=== PATIENT | female | born 1950 | race Caucasian/White ===

== ENCOUNTER 2017-08-22 10:38 | Observation (INO) ==
[~2017-08-22 10:38] MED LIST: Clindamycin 900mg (Premix) 900 MG/50 ML BAG IV ONE; LIDOCAINE MPF 2% - 5 ML (20 MG/1 ML) ONE; LIDOCAINE W/ SODIUM BICARB 0.5 ML SYR ONE; LIDOCAINE W/ SODIUM BICARB 0.5 ML SYR SUBD ONE; Lactated Ringers 1,000 ML PRIMARY IV ONE; MIDAZOLAM 5 MG/1 ML ONE; PROPOFOL 10 MG/1 ML (200 MG/20 ML) VIAL IV ONE; fentaNYL Inj 250 MCG/5 ML VIAL ONE
[2017-08-22] MEDS: Lactated Ringers 1,000 ML PRIMARY IV SCH ×2 (10:56→20:16)
[2017-08-22] MEDS ORDERED: EPINEPHrine Inj (1:1,000) 30mg/30ml vial ONE (11:20)
[2017-08-22] MEDS ORDERED: Ropivacaine 0.2% VIAL 20 ML ONE (11:20)
[2017-08-22] MEDS ORDERED: LIDOCAINE 2%/ EPI 1:200,000 - 20 ML VIAL ONE (11:49)
[2017-08-22] MEDS ORDERED: BUPivacaine Inj 0.5% PF (5mg/ml) 30ml vial ONE (11:49)
[2017-08-22] MEDS ORDERED: HYDROmorphone 2 MG/1 ML ONE ×3 (12:13→19:03)
[2017-08-22 12:38] LABS: BLOOD UREA NITROGEN 16 mg/dL (7-22)
[2017-08-22] MEDS ORDERED: LIDOCAINE MPF 2% - 5 ML (20 MG/1 ML) ONE (12:57)
[2017-08-22] MEDS ORDERED: ALBUTEROL SULFATE 8.5 GM HFA INHALER INH ONE (12:59)
[2017-08-22] MEDS ORDERED: ROCURONIUM 10 MG/1 ML - 5 ML VIAL IVP ONE (13:03)
[2017-08-22] MEDS ORDERED: GLYCOPYRROLATE 0.2 MG/1 ML VIAL ONE (13:17)
[2017-08-22] MEDS ORDERED: ONDANSETRON 4 MG/2 ML VIAL IVP PRN (14:56)
--- NOTE | 2017-08-22 14:56 | ORTHO.OP ---
- - -: See Dictated Operative Report Procedure Codes - Shoulder Procedures [facility] Procedure Codes: Other CPT Code(s) (CPT code 10841, 32262, 00567. W Rubio PAC assisted)
[2017-08-22] MEDS ORDERED: HYDROmorphone 2 MG/1 ML IVP PRN ×2 (15:01→15:14)
[2017-08-22] MEDS ORDERED: KETOROLAC 15 MG/1 ML VIAL ONE (15:10)
[2017-08-22] MEDS ORDERED: MIDAZOLAM HCL 50 MG/10 ML VIAL IVP PRN (15:14)
[2017-08-22] MEDS ORDERED: LIDOCAINE W/ SODIUM BICARB 0.5 ML SYR SUBD PRN (15:14)
[2017-08-22] MEDS ORDERED: Lactated Ringers 1,000 ML PRIMARY IV SCH (15:15)
--- NOTE | 2017-08-22 15:17 | CRNA.PROGR ---
Anesthesia Recovery Phase I - Post Anesthesia Evaluation Patient's Condition on Arrival in Phase I: Stable Pain Level: 7
--- NOTE | 2017-08-22 15:19 | CRNA.PROCE ---
Nerve Block Documentation - - Safety Measures: Time Out Taken - - Type of Nerve Block Used: Right Interscalene Block Position for Nerve Block: Supine Moniters Used During Block: EKG, SPO2, NIBP Oxygen Supplemented: Yes Sedation Used - Enter Amount in Comment Field [ANES.SEDAT]: Midazolam (mg): Yes (5mg), Other Sedation: Yes (dilaudid 1mg) Skin Prep Used: ChloroPrep Draped: No Technique: Nerve Stimulator Nerve Block Needle Used: Intelligent Apps (mytaxi) 50 mm Stimulation Hz: 2 Stimulation Staring mA: 1.2 Stimulation Ending mA: 0.48 Local Anesthetic - Enter Amt in Comment Field [ANES.LOCNB]: 0.5 % Bupivacaine Plain (mL): Yes (20ml), 2 % Xylocaine with Epinephrine 1:200,000 (mL): Yes (20ml ) Additives to Nerve Blocks: Dexamethasone (mg): Yes (8mg(2ml)) - - PreOp Block : Time In: 12:05 PreOp Block : Time Out: 12:20 Anesthesia Time - Other Weight: 95.254 kg Height: 5 ft 6 in Body Mass Index (BMI): 33.9
[2017-08-22] MEDS ORDERED: MIDAZOLAM 5 MG/1 ML ONE (15:20)
--- NOTE | 2017-08-22 15:21 | CRNA.PROGR ---
Anesthesia Time - - Start date: 08/22/17 End date: 08/22/17 - Procedure/Recovery Time Anesthesia : Time In: 12:34 Anesthesia : Time Out: 15:13 Anesthesia : Total Time: 159 - Block Time PreOp Block : Time In: 12:05 PreOp Block : Time Out: 12:20 PreOp Block : Total Time: 15 - Total Anesthesia Time Total Anesthesia Time (minutes): 174 - Other Weight: 95.254 kg Height: 5 ft 6 in Body Mass Index (BMI): 33.9 Physical Status: P3 Anesthesia Type: Interscalene Block (for post op pain control), General Anesthesia : LMA
[2017-08-22] MEDS ORDERED: Lactated Ringers 1,000 ML PRIMARY IV ONE (15:22)
[2017-08-22] MEDS ORDERED: Sodium Chloride 0.9% vial 10 ML ONE (16:08)
[2017-08-22] MEDS ORDERED: KETAMINE 100 MG/1 ML - 5 ML ONE ×2 (16:08→17:44)
[2017-08-22] MEDS ORDERED: Acetaminophen 1000mg Inj 1,000 MG/100 ML VIAL IV PRN (18:29)
[2017-08-22] MEDS ORDERED: KETOROLAC 30 MG/1 ML VIAL IVP SCH (18:30)
[2017-08-22] MEDS: HYDROmorphone 2 MG/1 ML IVP PRN (19:00)
[2017-08-22] MEDS ORDERED: NORMAL SALINE 10 ML SYRINGE FLUSH IVP PRN (19:09)
--- NOTE | 2017-08-22 19:13 | ORTHO.PROG ---
Last Taken Vital Signs: Vital Signs - Last Taken Temperature 97.3 F 08/22/17 11:00 Pulse Rate 60 08/22/17 11:00 Respiratory Rate 16 08/22/17 11:00 Blood Pressure 131/85 08/22/17 11:00 Pulse Ox 95 08/22/17 11:00 Subjective: Patient generally feels her pain is reasonably well controlled on multiple different IV medications. Patient is sleepy initially but was able to wake up and asked appropriate questions, joking. Objective: Right arm brace in appropriate position she can wiggle the fingers well normal sensory exam by her history. Her dressing is clean and dry. No active bleeding or issues. She has brisk refill good pulses good motion of the wrist also Vital Signs (24 hrs) Temp Pulse Resp BP Pulse Ox 08/22/17 11:00 97.3 F 60 16 131/85 95 Assessment: Status post right arthroscopic rotator cuff repair and biceps tenotomy and subacromial decompression and glenohumeral debridement doing well. Plan: At the current time patient is stable she seems to be well-controlled on IV Tylenol Toradol and dilaudid. Patient will continue on his current medications and we'll try to wean her to oral medications and try to get her home tomorrow morning. She'll begin physical therapy on Monday she is to bring her [facility] physical therapy form with her to the appointment.
[2017-08-22] MEDS: KETOROLAC 30 MG/1 ML VIAL IVP PRN (21:57)
[2017-08-22] MEDS ORDERED: Acetaminophen 1000mg Inj 1,000 MG/100 ML VIAL IV ONE (22:14)
[2017-08-22] MEDS ORDERED: HYDROcodone-APAP 7.5 MG-325 MG TABLET PO ONE (23:22)
[2017-08-22] MEDS: HYDROcodone-APAP 7.5 MG-325 MG TABLET PO PRN (23:27)
[2017-08-23] MEDS ORDERED: HYDROmorphone 2 MG/1 ML ONE (00:12)
[2017-08-23] MEDS: HYDROmorphone 2 MG/1 ML IVP PRN (00:15)
[2017-08-23] MEDS ORDERED: HYDROcodone-APAP 7.5 MG-325 MG TABLET PO ONE ×2 (03:58→07:33)
[2017-08-23] MEDS: HYDROcodone-APAP 7.5 MG-325 MG TABLET PO PRN ×3 (04:01→11:08)
[2017-08-23] MEDS ORDERED: KETOROLAC 30 MG/1 ML VIAL ONE (07:13)
[2017-08-23] MEDS: KETOROLAC 30 MG/1 ML VIAL IVP PRN (07:17)
[2017-08-23 12:00] VITALS: O2SAT 94
[2017-08-23] MEDS ORDERED: IBUPROFEN 800 MG TABLET PO PRN (12:11)
[2017-08-23] MEDS ORDERED: HYDROcodone-APAP 10 MG-325 MG TABLET PO PRN (12:11)
--- NOTE | 2017-08-23 15:30 | OT PM DAY ---
Diagnosis : Right Shoulder RTC PM - OT INPATIENT OBSERVATION O: The patient was instructed in activities of daily living including dressing and bathing, as well as shoulder do's and don'ts. The patient was issued a cryo cuff for the right shoulder and instructed in its proper use and care. P: No further therapy is indicated at this time. The patient will begin outpatient physical therapy. WEI
[2017-08-23 16:00] VITALS: BP 124/88; RESP 20; TEMP 98
--- NOTE | 2017-08-25 10:34 | OT AM DAY ---
Diagnosis : Right Shoulder RCR AM - Occupational Therapy S: The patient reports she is in an EXTREME amount of pain this morning. The nursing staff had called the therapist up to address her pain levels. The patient is reporting that she cannot get comfortable. She had tears in her eyes and they had just given her the max amount of pain medication. O: Today the patient was supine in bed. We had the patient sit edge of bed. One area of difficulty with her brace is that her elbow cannot fit completely down in the brace. We put a towel in the brace in order to have complete security with the elbow. We placed the shoulder in a much more neutral position. We have really focused on the patient relaxing in the brace. She needed a lot of verbal cues and breathing techniques. The brace and was adjusted to fit the patient appropriately. It appeared that the patient was tensing up too much in the brace. Once we got the patient positioned, we changed her bandage with sterile 4X4s and had her transfer to the chair. The therapist put pillows around the patient and under the brace so that she could completely relax while sitting in an upright position in her chair. A: The patient was not ready to go over ADLs. We will go over these this afternoon as well as her shoulder precautions. We need to get her pain levels under control. P: No further therapy is indicated at this time. JENNIFERD
--- NOTE | 2017-08-30 17:27 | ORTHO.PROG ---
Last Taken Vital Signs: Vital Signs - Last Taken Temperature 98.0 F 08/23/17 15:58 Pulse Rate 77 08/23/17 15:58 Respiratory Rate 20 08/23/17 15:58 Blood Pressure 124/88 08/23/17 15:58 Pulse Ox 94 08/23/17 15:58 Subjective: Patient was admitted to observation because of pain control issues and over the day has become controlled on a higher dose of oral narcotics and anti- inflammatories. Objective: Examination shows of the patient's block is not an effect she has normal sensory exam shows good motor of the wrist and digits. Her dressing is in place on the involved right arm. Her a DonJoy brace is also in place. Assessment: Right arthroscopic rotator cuff for repair subacromial decompression was admitted for pain control which required IV narcotics including IV anti- inflammatory agents and acetaminophen. Plan: Patient will be discharged home on a higher oral narcotic dose of hydrocodone 10 /325 she can also use anti-inflammatory agents regular icing continue with her DonJoy brace and she will start physical therapy at the end of the week. She' ll follow-up as previously scheduled
== END 2017-08-23 16:39 | disposition home or self-care (01) ==
LOC: OR 10:38 → MED/SURG 10:38
PROVIDERS: ADMIT Orthopaedic Surgery; ATTEND Orthopaedic Surgery